=== PATIENT | female | born 1950 | race Caucasian/White ===

== ENCOUNTER 2017-10-11 16:34 | Emergency (ER) | payer MEDICARE ==
[~2017-10-11] VITALS: Ht 154.9 cm; Wt 72.6 kg
--- NOTE | 2017-10-11 16:59 | EKG ---
[address] [address] Test Date: 2017-10-11 Test Time: 16:39:50 Pat Name: GHISLAINE CALABRESE Department: Room: Gender: F Corn Detasseler: BARB : 1950 Requested By: CINTHYA LAKE Order Number: [id number] Reading MD: Measurements Intervals Minetto Rate: 64 P: 35 RI: 172 QRS: -23 QRSD: 86 T: 33 QT: 394 QTc: 406 Interpretive Statements SINUS RHYTHM LEFTWARD AXIS QRS(T) CONTOUR ABNORMALITY CONSIDER ANTEROLATERAL MYOCARDIAL DAMAGE POSSIBLY ABNORMAL ECG RI6.01 No previous ECG available for comparison
[2017-10-11] MEDS ORDERED: ASPIRIN 81 MG TAB.CHEW PO ONE (17:00)
--- NOTE | 2017-10-11 17:05 | PHYS DOC ---
Past History Past Medical History: Diabetes, GERD, Other Past Surgical History: Appendectomy, Cervical Fusion, Cholecystectomy, Hysterectomy Alcohol Use: None Drug Use: None Adult General Chief Complaint Chief Complaint: CHEST PAIN HPI HPI 66-year-old female presents with left-sided chest pain. The area of pain is localized just under the left breast. It has been hurting her all day. She is unsure she woke up with it or if it started after she woke up. It hurts worse with deep breathing. She denies shortness of breath or diaphoresis. He has a history of pleurisy. She states that yesterday she had pleuritic type pain in that general area that was sharp. Today the pressure is a heaviness. He denies recent injury. She denies fever or chills. She denies rash. Review of Systems Review of Systems Constitutional: Denies fever or chills [] Eyes: Denies change in visual acuity, redness, or eye pain [] HENT: Denies nasal congestion or sore throat [] Respiratory: Denies cough or shortness of breath [] Cardiovascular: No additional information not addressed in HPI [] GI: Denies abdominal pain, nausea, vomiting, bloody stools or diarrhea [] : Denies dysuria or hematuria [] Musculoskeletal: Denies back pain or joint pain [] Integument: Denies rash or skin lesions [] Neurologic: Denies headache, focal weakness or sensory changes [] Endocrine: Denies polyuria or polydipsia [] All other systems were reviewed and found to be within normal limits, except as documented in this note. Current Medications Current Medications Current Medications Medications (Trade) Dose Ordered Sig/Rufino Start Time Stop Time Status Last Admin Dose Admin Aspirin (Children'S Aspirin) 243 mg 1X ONCE 10/11/17 17:00 10/11/17 17:01 Allergies Allergies Allergies Coded Allergies Type Severity Reaction Last Updated Verified Penicillins Allergy Intermediate 10/11/17 Yes carbamazepine Allergy Intermediate 10/11/17 Yes epinephrine Allergy Intermediate 10/11/17 Yes ibuprofen Allergy Intermediate 10/11/17 Yes latex Allergy Intermediate 10/11/17 Yes naproxen Allergy Intermediate 10/11/17 Yes tramadol Allergy Intermediate 10/11/17 Yes Physical Exam Physical Exam Constitutional: Well developed, well nourished, no acute distress, non-toxic appearance. [] HENT: Normocephalic, atraumatic, bilateral external ears normal, oropharynx moist, no oral exudates, nose normal. [] Eyes: PERRLA, EOMI, conjunctiva normal, no discharge. [] Neck: Normal range of motion, no tenderness, supple, no stridor. [] Cardiovascular:Heart rate regular rhythm, no murmur. Tenderness to palpation of the chest just under the left lateral breast. No rash. [] Lungs & Thorax: Bilateral breath sounds clear to auscultation [] Abdomen: Bowel sounds normal, soft, no tenderness, no masses, no pulsatile masses. [] Skin: Warm, dry, no erythema, no rash. [] Back: No tenderness, no CVA tenderness. [] Extremities: No tenderness, no cyanosis, no clubbing, ROM intact, no edema. [] Neurologic: Alert and oriented X 3, normal motor function, normal sensory function, no focal deficits noted. [] Psychologic: Affect normal, judgement normal, mood normal. [] EKG EKG Normal sinus rhythm, rate 64, normal axis, no ST elevations or depressions.[] Radiology/Procedures Radiology/Procedures AP portable chest 10/11/2017. Reason for exam: Left-sided chest pain for one day. Comparison is made with a study of 10/29/2015. No infiltrate or effusion is seen. Heart size and pulmonary vascularity appear normal. IMPRESSION: No acute disease. Electronically signed by: Lan Rodriguez Jr., MD (10/11/2017 5:17 PM) [facility] [] Course & Med Decision Making Course & Med Decision Making Pertinent Labs and Imaging studies reviewed. (See chart for details) Patient's chest x-ray is unremarkable. Her labs are unremarkable. Her troponin is negative. I believe the patient's pain is musculoskeletal. I don't see any evidence of cardiac source. The patient is postoperative hernia surgery on Thursday so she is limited in the medications she can take for pain. I will leave it up to her whether or not she wants to take anti-inflammatories and potentially delay her surgery or "tough it out". I have also advised the patient to look for possible rash as sometimes shingles presents with the pain she is describing. He stated verbal understanding. She will only take Tylenol at home so that she can still have surgery. [] Dragon Disclaimer Dragon Disclaimer This electronic medical record was generated, in whole or in part, using a voice recognition dictation system. CINTHYA LAKE DO October 11, 2017 17:05
[2017-10-11 17:14] LABS: BASO % 1 % (0-3); EOS # 0.1 x10^3/uL (0.0-0.7); EOS % 1 % (0-3); HEMATOCRIT 40.1 % (36.0-47.0); HEMOGLOBIN 13.4 g/dL (12.0-15.5); LYMPH # 2.9 x10^3/uL (1.0-4.8); LYMPH % 39 % (24-48); MEAN CORPUSCULAR HEMOGLOBIN 31 pg (25-35); MEAN CORPUSCULAR HGB CONC 34 g/dL (31-37); MEAN CORPUSCULAR VOLUME 91 fL (79-100); MONO # 0.6 x10^3/uL (0.0-1.1); MONO % 8 % (0-9); NEUT # 3.8 x10^3uL (1.8-7.7); NEUT % 51 % (31-73); PLATELET COUNT 124 x10^3/uL (140-400); RED CELL DISTRIBUTION WIDTH 13.6 % (11.5-14.5); WHITE BLOOD COUNT 7.5 x10^3/uL (4.0-11.0)
--- NOTE | 2017-10-11 17:20 | RAD ---
AP portable chest 10/11/2017. Reason for exam: Left-sided chest pain for one day. Comparison is made with a study of 10/29/2015. No infiltrate or effusion is seen. Heart size and pulmonary vascularity appear normal. IMPRESSION: No acute disease. Electronically signed by: Lan Rodriguez Jr., MD (10/11/2017 5:17 PM) [facility]
[2017-10-11 17:21] LABS: CALCIUM 10.1 mg/dL (8.5-10.1); CREATININE 1.1 mg/dL (0.6-1.0); POTASSIUM 4.6 mmol/L (3.5-5.1)
[2017-10-11 17:53] LABS: BACTERIA,URINE 0 /HPF (0-FEW); BILIRUBIN,URINE NEG (NEG); CLARITY,URINE CLEAR; COLOR,URINE STRAW; GLUCOSE,URINE NEG (NEG); HYALINE CASTS, URINE OCC /HPF; NITRITE,URINE NEG (NEG); RBC,URINE RARE /HPF (0-2); SQUAMOUS EPITHELIAL CELL,UR OCC /LPF; UROBILINOGEN,URINE 0.2 mg/dL (0.2 mg/dL)
[2017-10-11 18:11] VITALS: BP 128/65
== END 2017-10-11 18:10 | disposition home or self-care (01) ==
LOC: ER 16:34
DX: R07.89 Other chest pain (principal); E11.9 Type 2 diabetes mellitus without complications; K21.9 Gastro-esophageal reflux disease without esophagitis; Z88.0 Allergy status to penicillin; Z88.6 Allergy status to analgesic agent; Z91.040 Latex allergy status; Z88.8 Allergy status to other drugs, medicaments and biological substances
CPT/HCPCS: 36415; 71045; 80048; 81001; 84484; 85025; 87086; 93005; 99285-25

== ENCOUNTER 2018-07-25 10:32 | Emergency (ER) | payer MEDICARE ==
[~2018-07-25] VITALS: Ht 154.9 cm; Wt 72.6 kg
--- NOTE | 2018-07-25 11:42 | PHYS DOC ---
Past History Past Medical History: Asthma, Diabetes, GERD, Hypertension, Migraines, TIA, Other Past Surgical History: Appendectomy, Cervical Fusion, Cholecystectomy, Hysterectomy, Other Alcohol Use: None Drug Use: None Adult General Chief Complaint Chief Complaint: ANKLE PROBLEM HPI HPI Female presents with left ankle pain. The patient was walking out of her house with her cataracts sunglasses on and did not see that the ice had refrozen. She fell and had immediate severe pain in the left ankle. She was not able to stand up. She has significant swelling and continued pain. She still cannot bear weight on this joint. Is any other injuries or complaints. She did not hit her head. She denies fever or chills. Review of Systems Review of Systems Constitutional: Denies fever or chills [] Eyes: Denies change in visual acuity, redness, or eye pain [] HENT: Denies nasal congestion or sore throat [] Respiratory: Denies cough or shortness of breath [] Cardiovascular: No additional information not addressed in HPI [] GI: Denies abdominal pain, nausea, vomiting, bloody stools or diarrhea [] : Denies dysuria or hematuria [] Musculoskeletal: Left ankle pain[] Integument: Denies rash or skin lesions [] Neurologic: Denies headache, focal weakness or sensory changes [] Endocrine: Denies polyuria or polydipsia [] All other systems were reviewed and found to be within normal limits, except as documented in this note. Allergies Allergies Allergies Coded Allergies Type Severity Reaction Last Updated Verified Penicillins Allergy Intermediate 10/11/17 Yes carbamazepine Allergy Intermediate 10/11/17 Yes epinephrine Allergy Intermediate 10/11/17 Yes ibuprofen Allergy Intermediate 10/11/17 Yes latex Allergy Intermediate 10/11/17 Yes naproxen Allergy Intermediate 10/11/17 Yes tramadol Allergy Intermediate 10/11/17 Yes Physical Exam Physical Exam Constitutional: Well developed, well nourished, no acute distress, non-toxic appearance. [] HENT: Normocephalic, atraumatic, bilateral external ears normal, oropharynx moist, no oral exudates, nose normal. [] Eyes: PERRLA, EOMI, conjunctiva normal, no discharge. [] Neck: Normal range of motion, no tenderness, supple, no stridor. [] Cardiovascular:Heart rate regular rhythm, no murmur [] Lungs & Thorax: Bilateral breath sounds clear to auscultation [] Abdomen: Bowel sounds normal, soft, no tenderness, no masses, no pulsatile masses. [] Skin: Warm, dry, no erythema, no rash. [] Back: No tenderness, no CVA tenderness. [] Extremities: Left ankle tenderness on both malleoli, significant swelling and ecchymosis. Nonweightbearing.[] Neurologic: Alert and oriented X 3, normal motor function, normal sensory function, no focal deficits noted. [] Psychologic: Affect normal, judgement normal, mood normal. [] Current Patient Data Vital Signs Vital Signs Date Time Temp Pulse Resp B/P (MAP) Pulse Ox O2 Delivery O2 Flow Rate FiO2 07/25/18 10:32 97.9 74 16 100 Room Air EKG EKG [] Radiology/Procedures Radiology/Procedures [] Impressions: Interpretation: Patient has a trimalleolar fracture of the left ankle. ANKLE LEFT 3V History: FALL ON ICE THIS MORNING, SWELLING, PAIN. Comparison: None are available Nondisplaced transverse fracture of the medial malleolus. There is a slightly oblique fracture of the distal fibula with minimal displacement. There is also a small nondisplaced fracture at the posterior malleolus of the distal tibia. Evidence of joint effusion. No evidence of tibiotalar dislocation. Mild soft tissue swelling around the ankle. Vascular calcifications are identified. Calcaneal enthesophytes are seen. IMPRESSION: Trimalleolar fracture, minimal displacement. No dislocation. Electronically signed by: Jerrica Mdaden MD (07/25/2018 11:44 AM) [facility] DICTATED AND SIGNED BY: JERRICA MADDEN MD DATE: 07/25/18 1141 CC: CINTHYA LAKE DO; KERLINE HALL MD Course & Med Decision Making Course & Med Decision Making Pertinent Labs and Imaging studies reviewed. (See chart for details) She has a fracture of her tibia and fibula. We will place her on a splint and discuss the patient with orthopedics. Discussed the patient with Dr. Teague, orthopedics and he believes the patient can be safely discharged home in a splint and he will see her in the office tomorrow. I'll discharge the patient in a splint, on crutches. I will also give her [place] 5/325 for pain. [] Dragon Disclaimer Dragon Disclaimer This electronic medical record was generated, in whole or in part, using a voice recognition dictation system. Departure Departure: Impression: Primary Impression: Closed left ankle fracture Disposition: 01 HOME, SELF-CARE Condition: STABLE Referrals: KERLINE HALL MD (PCP) Patient Instructions: Ankle Fracture, [id number] Additional Instructions: Please call Dr. Teague's office tomorrow morning for an appointment. Number is . He is expecting to see her tomorrow. He will likely need surgery later in the week. Scripts Hydrocodone Bit/Acetaminophen (NORCO 5-325 TABLET) 1 Each Tablet 1-2 TAB PO PRN Q6HRS PRN for PAIN, #20 TAB 0 Refills Prov: CINTHYA LAKE DO 07/25/18 Problem Qualifiers Primary Impression: Closed left ankle fracture Encounter type: initial encounter Qualified Codes: S82.892A - Other fracture of left lower leg, initial encounter for closed fracture CINTHYA LAKE DO Jul 25, 2018 11:42
--- NOTE | 2018-07-25 11:47 | RAD ---
ANKLE LEFT 3V History: FALL ON ICE THIS MORNING, SWELLING, PAIN. Comparison: None are available Nondisplaced transverse fracture of the medial malleolus. There is a slightly oblique fracture of the distal fibula with minimal displacement. There is also a small nondisplaced fracture at the posterior malleolus of the distal tibia. Evidence of joint effusion. No evidence of tibiotalar dislocation. Mild soft tissue swelling around the ankle. Vascular calcifications are identified. Calcaneal enthesophytes are seen. IMPRESSION: Trimalleolar fracture, minimal displacement. No dislocation. Electronically signed by: Errol Madden MD (07/25/2018 11:44 AM) [facility]
[2018-07-25] MEDS ORDERED: HYDROcodone/APAP 5/325MG 1 TAB TABLET PO ONE ×2 (12:00→13:45)
[2018-07-25] MEDS ORDERED: NAPROXEN 500 MG TABLET PO ONE (12:15)
[2018-07-25] MEDS ORDERED: KETOROLAC 30 MG/ML VIAL. IV ONE (12:15)
[2018-07-25] MEDS ORDERED: HYDR-3165 PO (13:19)
--- NOTE | 2018-07-25 13:20 | RAD ---
HIP LEFT 2V WITH PELVIS, KNEE LEFT 3V History: left hip pain and pelvis pain post fall. Comparison: None are available 3 view portable left knee No evidence of acute fracture. No bone destruction is identified. Mild vascular calcification. IMPRESSION: No acute fracture or dislocation. 3 view left hip No evidence of acute fracture. No aggressive bone destruction. No evidence of dislocation. AP image of the skeletal pelvis demonstrates no dislocation at the right hip. IMPRESSION: No acute fracture or dislocation. Electronically signed by: Errol Madden MD (07/25/2018 1:17 PM) [facility]
[2018-07-25 13:35] VITALS: BP 128/68
== END 2018-07-25 14:20 | disposition home or self-care (01) ==
LOC: ER 10:32
DX: S82.852A Displaced trimalleolar fracture of left lower leg, initial encounter for closed fracture (principal); M25.552 Pain in left hip; R10.2 Pelvic and perineal pain; J45.909 Unspecified asthma, uncomplicated; E11.9 Type 2 diabetes mellitus without complications; K21.9 Gastro-esophageal reflux disease without esophagitis; I10 Essential (primary) hypertension; G43.909 Migraine, unspecified, not intractable, without status migrainosus; Z86.73 Personal history of transient ischemic attack (TIA), and cerebral infarction without residual deficits; Z90.89 Acquired absence of other organs; Z90.49 Acquired absence of other specified parts of digestive tract; Z90.710 Acquired absence of both cervix and uterus; Z88.0 Allergy status to penicillin; Z88.8 Allergy status to other drugs, medicaments and biological substances; Z88.6 Allergy status to analgesic agent; Z91.040 Latex allergy status; W00.0XXA Fall on same level due to ice and snow, initial encounter; Y93.01 Activity, walking, marching and hiking; Y92.89 Other specified places as the place of occurrence of the external cause; Y99.8 Other external cause status
CPT/HCPCS: 29515; 73502; 73562; 73610; 99284

== ENCOUNTER → 2018-11-26 | Outpatient (CLI) | payer MEDICARE ==
[~2018-11-26] MED LIST: 0.9 % SODIUM CHLORIDE 10 ML VIAL ONE; BUPIVACAINE MPF 0.25% 10 ML VIAL. ONE; HYDR-3165 PO; IOHEXOL 300 MG/ML 50 ML VIAL. ONE; LIDOCAINE 1% PF 30 ML VIAL. ONE; methylPREDNISolone ACETATE 80 MG/ML VIAL. ONE
== END ==
LOC: SURG 11:47
PROVIDERS: ATTEND Anesthesiology Pain Medicine
DX: M54.16 Radiculopathy, lumbar region (principal); J45.909 Unspecified asthma, uncomplicated; I10 Essential (primary) hypertension; K21.9 Gastro-esophageal reflux disease without esophagitis; Z85.828 Personal history of other malignant neoplasm of skin; Z79.82 Long term (current) use of aspirin; Z98.890 Other specified postprocedural states; Z79.899 Other long term (current) drug therapy
CPT/HCPCS: 62323; 82947; J1040; J2001; J3490; Q9967

== ENCOUNTER 2019-01-29 09:49 | Observation (INO) | payer MEDICARE ==
[~2019-01-29] VITALS: Ht 154.9 cm; Wt 74.0 kg
[~2019-01-29 09:49] MED LIST changes: -0.9 % SODIUM CHLORIDE 10 ML VIAL ONE; -BUPIVACAINE MPF 0.25% 10 ML VIAL. ONE; -IOHEXOL 300 MG/ML 50 ML VIAL. ONE; -LIDOCAINE 1% PF 30 ML VIAL. ONE; -methylPREDNISolone ACETATE 80 MG/ML VIAL. ONE
--- NOTE | 2019-01-29 10:23 | PHYS DOC ---
Past History Past Medical History: Asthma, Diabetes, GERD, Hypertension, Migraines, TIA, Other Past Surgical History: Appendectomy, Cervical Fusion, Cholecystectomy, Hysterectomy, Other Alcohol Use: None Drug Use: None Adult General Chief Complaint Chief Complaint: MECHANICAL FALL HPI HPI 68-year-old female presents after fall. The patient was try to get things out of back of her car when she fell onto her left side. Patient is having some medial left hip discomfort. She also hit her head and a fair amount of bleeding from an abrasion on her left forehead. She has significant ecchymosis of the left forehead and above the left eye. She denies change in vision. She denies unconsciousness. She is not dizzy. She believes she just lost her balance and fell. She is supposed to use a cane most of the time. She has been feeling dizzy intermittently takes meclizine for this. She does not remember feeling dizzy right before her fall. Patient also has some left ankle discomfort. She fell 6 months ago and had left ankle surgery. She is concerned there might be disrupted. She denies fever or chills. Review of Systems Review of Systems Constitutional: Denies fever or chills [] Eyes: Denies change in visual acuity, redness, or eye pain [] HENT: Head trauma. Denies nasal congestion or sore throat [] Respiratory: Denies cough or shortness of breath [] Cardiovascular: No additional information not addressed in HPI [] GI: Denies abdominal pain, nausea, vomiting, bloody stools or diarrhea [] : Denies dysuria or hematuria [] Musculoskeletal: Left hip pain, left ankle pain[] Integument: Denies rash or skin lesions [] Neurologic: Denies headache, focal weakness or sensory changes [] Endocrine: Denies polyuria or polydipsia [] All other systems were reviewed and found to be within normal limits, except as documented in this note. Allergies Allergies Allergies Coded Allergies Type Severity Reaction Last Updated Verified Penicillins Allergy Intermediate 10/11/17 Yes carbamazepine Allergy Intermediate 10/11/17 Yes epinephrine Allergy Intermediate 10/11/17 Yes ibuprofen Allergy Intermediate 10/11/17 Yes latex Allergy Intermediate 10/11/17 Yes naproxen Allergy Intermediate 10/11/17 Yes tramadol Allergy Intermediate 10/11/17 Yes Physical Exam Physical Exam Constitutional: Well developed, well nourished, no acute distress, non-toxic appearance. [] HENT: Normocephalic, bilateral external ears normal, oropharynx moist, no oral exudates, nose normal. Bruising of left forehead and upper eyelid. [] Eyes: PERRLA, EOMI, conjunctiva normal, no discharge. [] Neck: Normal range of motion, no tenderness, supple, no stridor. [] Cardiovascular:Heart rate regular rhythm, no murmur [] Lungs & Thorax: Bilateral breath sounds clear to auscultation [] Abdomen: Bowel sounds normal, soft, no tenderness, no masses, no pulsatile masses. [] Skin: Warm, dry, no erythema, no rash. [] Back: No tenderness, no CVA tenderness. [] Extremities: No tenderness, no cyanosis, no clubbing, ROM intact, no edema. [] Neurologic: Alert and oriented X 3, normal motor function, normal sensory function, no focal deficits noted. [] Psychologic: Affect normal, judgement normal, mood normal. [] EKG EKG [] Radiology/Procedures Radiology/Procedures [] Impressions: CT HEAD WO CONTRAST Indication: Fall. Headaches. Dizziness. Exposure: One or more of the following individualized dose reduction techniques were utilized for this examination: 1. Automated exposure control 2. Adjustment of the mA and/or kV according to patient size 3. Use of iterative reconstruction technique. Technique: Standard imaging without intravenous contrast. Comparison: None FINDINGS: No evidence of acute intracranial hemorrhage, mass effect, midline shift or abnormal extra-axial fluid collection. Orozco-white matter distinction is intact. Mild soft tissue density and swelling in the left periorbital and left frontal region. Small fluid level within the left maxillary sinus. No definite fracture is identified. Orbits appear grossly intact. IMPRESSION: 1. No evidence of acute intracranial hemorrhage. 2. Left periorbital and left frontal scalp swelling or hematoma. 3. Small fluid level within the partially visualized left maxillary sinus. This could be inflammatory or posttraumatic. No displaced fracture is seen at the partially visualized facial bones but if facial fracture is of concern, recommend dedicated CT scan. Electronically signed by: Errol Madden MD (01/29/2019 10:39 AM) [facility] DICTATED AND SIGNED BY: ERROL MADDEN MD DATE: 01/29/19 1039 CC: CINTHYA LAKE DO; KERLINE HALL MD ~ Examination: ANKLE LEFT 3V History: Fall, pain, recent surgery Comparison/Correlation: 07/25/2018 left ankle 3 view x-ray exam Findings: A total of 3 views of the left ankle were obtained. Right is noted involving the left fibula extending to the distal lateral malleolus. Mild deformity with findings of previous history of fracture noted. There are 2 linear rods involving the distal tibia extending to the distal medial malleolus. Small calcaneal spur is present. Vascular calcifications are present. No acute fracture or bony destruction. Impression: Postoperative findings. No acute process. Electronically signed by: Luís Valle MD (01/29/2019 11:02 AM) [facility] DICTATED AND SIGNED BY: LUÍS VALLE MD DATE: 01/29/19 1102 CC: CINTHYA LAKE DO; KERLINE HALL MD ~ Course & Med Decision Making Course & Med Decision Making Pertinent Labs and Imaging studies reviewed. (See chart for details) The patient's head CT is negative for intracranial bleed. It does show superficial hematoma. See official report for more details. I am not suspicious for maxillary fracture. Her chest x-rays negative for acute findings. The patient's labs is unremarkable. Her urinalysis is unremarkable. The patient is having significant pain requiring IV pain medication for her left hip. I believe that would also be blue to observe her given her head trauma and aspirin use. I spoke to the hospitalist, Dr. Zhou and he has accepted the patient for observation admission. [] Dragon Disclaimer Dragon Disclaimer This electronic medical record was generated, in whole or in part, using a voice recognition dictation system. Departure Departure: Impression: Primary Impression: Fall from standing Additional Impressions: Closed head injury Contusion of face Left hip pain Disposition: ADMITTED INPATIENT Admitting Physician: Florentino Zhou Condition: STABLE Referrals: KERLINE HALL MD (PCP) Problem Qualifiers CINTHYA LAKE DO Jan 29, 2019 10:23
--- NOTE | 2019-01-29 10:42 | RAD ---
CT HEAD WO CONTRAST Indication: Fall. Headaches. Dizziness. Exposure: One or more of the following individualized dose reduction techniques were utilized for this examination: 1. Automated exposure control 2. Adjustment of the mA and/or kV according to patient size 3. Use of iterative reconstruction technique. Technique: Standard imaging without intravenous contrast. Comparison: None FINDINGS: No evidence of acute intracranial hemorrhage, mass effect, midline shift or abnormal extra-axial fluid collection. Orozco-white matter distinction is intact. Mild soft tissue density and swelling in the left periorbital and left frontal region. Small fluid level within the left maxillary sinus. No definite fracture is identified. Orbits appear grossly intact. IMPRESSION: 1. No evidence of acute intracranial hemorrhage. 2. Left periorbital and left frontal scalp swelling or hematoma. 3. Small fluid level within the partially visualized left maxillary sinus. This could be inflammatory or posttraumatic. No displaced fracture is seen at the partially visualized facial bones but if facial fracture is of concern, recommend dedicated CT scan. Electronically signed by: Errol Madden MD (01/29/2019 10:39 AM) [facility]
--- NOTE | 2019-01-29 11:05 | RAD ---
Examination: ANKLE LEFT 3V History: Fall, pain, recent surgery Comparison/Correlation: 07/25/2018 left ankle 3 view x-ray exam Findings: A total of 3 views of the left ankle were obtained. Right is noted involving the left fibula extending to the distal lateral malleolus. Mild deformity with findings of previous history of fracture noted. There are 2 linear rods involving the distal tibia extending to the distal medial malleolus. Small calcaneal spur is present. Vascular calcifications are present. No acute fracture or bony destruction. Impression: Postoperative findings. No acute process. Electronically signed by: Luís Coronado MD (01/29/2019 11:02 AM) [facility]
[2019-01-29 12:10] LABS: BASO % 1 % (0-3); EOS # 0.1 x10^3/uL (0.0-0.7); EOS % 1 % (0-3); HEMOGLOBIN 12.9 g/dL (12.0-15.5); LYMPH # 1.3 x10^3/uL (1.0-4.8); LYMPH % 23 % (24-48); MEAN CORPUSCULAR HEMOGLOBIN 31 pg (25-35); MEAN CORPUSCULAR HGB CONC 33 g/dL (31-37); MEAN CORPUSCULAR VOLUME 94 fL (79-100); MONO # 0.5 x10^3/uL (0.0-1.1); MONO % 8 % (0-9); NEUT # 3.8 x10^3uL (1.8-7.7); NEUT % 67 % (31-73); PLATELET COUNT 128 x10^3/uL (140-400); RED BLOOD COUNT 4.16 x10^6/uL (3.50-5.40); RED CELL DISTRIBUTION WIDTH 14.3 % (11.5-14.5); WHITE BLOOD COUNT 5.7 x10^3/uL (4.0-11.0)
[2019-01-29 12:22] LABS: ALBUMIN 3.4 g/dL (3.4-5.0); ALBUMIN/GLOBULIN RATIO 0.9 (1.0-1.7); CALCIUM 10.2 mg/dL (8.5-10.1); CREATININE 0.8 mg/dL (0.6-1.0); GFR 71.8; POTASSIUM 4.6 mmol/L (3.5-5.1); TOTAL BILIRUBIN 0.4 mg/dL (0.2-1.0); TOTAL PROTEIN 7.1 g/dL (6.4-8.2)
[2019-01-29 13:25] LABS: BACTERIA,URINE 0 /HPF (0-FEW); BILIRUBIN,URINE NEG (NEG); CLARITY,URINE CLEAR; COLOR,URINE YELLOW; GLUCOSE,URINE NEG (NEG); NITRITE,URINE NEG (NEG); RBC,URINE 0 /HPF (0-2); SQUAMOUS EPITHELIAL CELL,UR OCC /LPF; UROBILINOGEN,URINE 0.2 mg/dL (0.2 mg/dL); WBC,URINE 0 /HPF (0-4)
[2019-01-29] MEDS: ONDANSETRON PF 4 MG/2 ML VIAL. IV PRN ×2 (14:47→20:41)
--- NOTE | 2019-01-29 14:50 | RAD ---
HIP LEFT 2V WITH PELVIS History: Pain after a fall.. No evidence of acute fracture. No aggressive bone destruction. Joint spaces appear intact. Moderate stool within the visualized colon and rectum. Mild small bowel gaseous distention suggesting an ileus. IMPRESSION: 1. No evidence of an acute fracture. If there is persistent clinical concern for occult fracture, consider MRI. 2. Moderate retained stool or constipation. Electronically signed by: Errol Madden MD (01/29/2019 2:47 PM) [facility]
[2019-01-29 18:50] VITALS: BP 145/79
[2019-01-29 20:10] VITALS: BP 139/80
[2019-01-29] MEDS ORDERED: GABA600T7 PO (20:19)
[2019-01-29] MEDS ORDERED: LOSA50TA86 PO (20:20)
[2019-01-29] MEDS ORDERED: CYCL1DRO EACHEYE (20:21)
--- NOTE | 2019-01-29 20:31 | HP ---
ADMIT DATE: 01/29/2019 ATTENDING PHYSICIAN: Dr. Villafana. CHIEF COMPLAINT: Fall and head injury. HISTORY OF PRESENT ILLNESS: The patient, age 68, has frequent falls. She was trying to get things on the back of a car. She fell on her left side. She had struck her head and there is an abrasion and contusion to the left orbit. She has a significant black eye. She denied any changes in vision. The orbit appears intact. She believes she lost her balance and fell. She has had recent fall 6 months ago sustaining an injury and a fracture of the left ankle and leg. She is admitted then for observation and pain control. She is nonambulatory. She has had a hip surgery in the past and she can walk and get around. PAST MEDICAL HISTORY: Significant for asthma, type 2 diabetes, gastroesophageal reflux disease, hypertension, migraine, remote history of TIAs and complex regional pain syndrome, which used to be called reflex sympathetic dystrophy. PAST SURGICAL HISTORY: Includes appendectomy, cervical fusion, cholecystectomy and hysterectomy. SOCIAL HISTORY: She is a nonsmoker, nondrinker. CURRENT MEDICINES: Reviewed. Her current medicines just include hydrocodone and Zofran. ALLERGIES: She has multiple allergies including PENICILLIN, CARBAMAZEPINE, EPINEPHRINE, IBUPROFEN, LATEX, NAPROSYN and TRAMADOL. FAMILY HISTORY: Noncontributory. REVIEW OF SYSTEMS: Significant for chronic pain involving her left ankle, leg and back, frequent falls, dysphagia. She has had a contusion. There is no history of nausea, vomiting, diarrhea. All other systems reviewed and determined to be negative. PHYSICAL EXAMINATION: GENERAL: When I saw her, this is a pleasant middle-aged female. INITIAL VITAL SIGNS: Showed a blood pressure 145/79, pulse of 76 and regular. She was afebrile. HEENT: There is left orbital ecchymoses with significant swelling. The eyelid is inflamed. The orbit appears intact. There is no diplopia. The sclerae were nonicteric. The oropharynx is clear. NECK: Supple, no bruits. LUNGS: Otherwise clear. CARDIOVASCULAR: Showed regular heart tones. No gallops or murmurs. Peripheral pulses are palpable and full. ABDOMEN: Soft, scaphoid, nontender, no organomegaly. Bowel sounds are hypoactive. EXTREMITIES: Showed mild degenerative changes of her ankles and knees. NEUROLOGIC: Focally intact. No deficits. PERTINENT LABORATORY STUDIES: X-rays as noted. There are no obvious fractures identified. The obligatory CT of the head showed no evidence of acute intracranial hemorrhage. She has a left periorbital and left frontal scalp swelling and hematoma, small fluid level within the maxillary sinus. X-rays of the left hip shows no evidence of acute fracture or dislocation. Her hemoglobin was maintained at 12.9 g/dL with white count of 5700. Chemistry panel showed a serum creatinine of 0.8 mg percent. Electrolytes within normal range. Nonfasting blood sugar 155. ASSESSMENT: 1. This 68-year-old female fell. No loss of consciousness. She has a significant hematoma of the left orbit. 2. Complex regional pain syndrome following trauma of her left ankle and leg. 3. Chronic back pain. 4. Essential hypertension. PLAN: 1. Admit to the inpatient unit. 2. Pain management, p.r.n. narcotics have been ordered. 3. Bed rest. 4. Diet as tolerated. 5. Nausea control. 6. We will ask physical therapy to see next week when they are available. DARREN VILLAFANA MD DR: PADDY/neptali JOB#: [id number] / [id number]
[2019-01-29] MEDS: LOSARTAN 50 MG TABLET. PO SCH (20:41)
[2019-01-29] MEDS: GABAPENTIN 300 MG CAPSULE. PO SCH (20:42)
[2019-01-29] MEDS: HYDROcodone/APAP 10/325 1 TAB TABLET PO PRN (22:34)
[2019-01-29 22:46] VITALS: BP 143/78
[2019-01-30] MEDS: HYDROcodone/APAP 10/325 1 TAB TABLET PO PRN ×3 (05:18→17:52)
[2019-01-30 05:38] VITALS: BP 128/77
[2019-01-30] MEDS: GABAPENTIN 300 MG CAPSULE. PO SCH ×3 (09:09→20:39)
[2019-01-30 10:55] VITALS: BP 100/62
[2019-01-30] MEDS: LINAGLIPTIN 5 MG TABLET PO SCH (12:43)
[2019-01-30] MEDS: metFORMIN XR 500 MG TAB.ER.24H PO SCH (12:43)
[2019-01-30 15:09] VITALS: BP 139/81
[2019-01-30] MEDS ORDERED: GLIP5TAB10 PO (17:08)
[2019-01-30] MEDS: glipiZIDE 5 MG TABLET PO SCH (17:40)
[2019-01-30 20:07] VITALS: BP 134/67
[2019-01-30] MEDS: LOSARTAN 50 MG TABLET. PO SCH (20:39)
[2019-01-30] MEDS: cycloSPORINE 0.05% OPTH 1 DROP DROPERETTE OU SCH ×2 (20:39)
--- NOTE | 2019-01-30 21:31 | PN ---
DATE: 01/30/2019 ATTENDING PHYSICIAN: Dr. Villafana. CHIEF COMPLAINT: Fall and inability to ambulate independently. SUBJECTIVE: She is sore. She is able to transfer with minimal assistance. She denied any dizziness, nausea. The pain of the trauma is slightly improved. She is eating. She has no new complaints. PHYSICAL EXAMINATION: VITAL SIGNS: Her blood pressure today is 128/77, pulse of 65 and regular, temperature 97.5 degrees Fahrenheit, oxygen saturation 95% on room air. HEENT: There is significant trauma of the left side of her face with periorbital ecchymoses and bruising extending down the entire right side of her face. The orbit is intact. She has no diplopia or orbital issues. NECK: Supple. LUNGS: Clear. CARDIOVASCULAR: Showed regular heart tones. No gallops. Peripheral pulses are palpable and full. ABDOMEN: Soft, scaphoid, nontender, no organomegaly. Bowel sounds are hypoactive. LABORATORY DATA: Nonfasting blood sugar today is 133. She is still hurting in chronic back and leg. These are again chronic issues. ASSESSMENT: 1. A 68-year-old female with frequent falls. No loss of consciousness. Significant hematoma, left orbit. 2. Complex regional pain syndrome involving her left ankle, leg, and chronic low back pain. 3. Chronic low back pain, aggravated by recent fall. 4. Essential hypertension. PLAN: 1. Pain and nausea control. 2. Diet as tolerated. 3. She will decide tomorrow whether she is able to be ambulatory and go home or whether she needs acute rehabilitation. DARREN VILLAFANA MD DR: PADDY/neptali JOB#: [id number] / [id number]
[2019-01-30 22:56] VITALS: BP 117/71
[2019-01-31] MEDS: HYDROcodone/APAP 10/325 1 TAB TABLET PO PRN ×2 (00:25→06:12)
[2019-01-31 06:06] VITALS: BP 134/75
[2019-01-31] MEDS: glipiZIDE 5 MG TABLET PO SCH (08:31)
[2019-01-31] MEDS: LINAGLIPTIN 5 MG TABLET PO SCH (08:31)
[2019-01-31] MEDS: metFORMIN XR 500 MG TAB.ER.24H PO SCH (08:31)
[2019-01-31] MEDS: GABAPENTIN 300 MG CAPSULE. PO SCH (08:31)
[2019-01-31] MEDS: cycloSPORINE 0.05% OPTH 1 DROP DROPERETTE OU SCH ×2 (08:32→08:33)
--- NOTE | 2019-01-31 08:58 | DS ---
DATE OF DISCHARGE: 01/31/2019 ATTENDING PHYSICIAN: Dr. Villafana. FINAL DISCHARGE DIAGNOSES: 1. Fall at home. No loss of consciousness. 2. Concussion head, improved. 3. Hip contusion, improved. 4. Marked contusion of face, mainly left side of face and left orbit. 5. Type 2 diabetes. 6. Chronic low back pain. 7. Complex regional pain syndrome involving her left lower extremity. 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 She tripped and lost her balance. She sustained injuries to her head, trauma to the face, and the left orbit and left hip pain. She was nonambulatory. She was admitted for intractable pain refractory to outpatient care. PHYSICAL EXAMINATION: Please see the dictated note. PERTINENT LABORATORY AND X-RAY IMAGING STUDIES: The left hip and pelvis showed no evidence of acute fracture. The obligatory CT of the head showed periorbital and left frontal scalp swelling, hematoma, no acute intracranial process, hemorrhage or strokes identified. The hemoglobin is maintained at 12.9 g/dL with white count of 5700. Chemistry panel nonfasting blood sugar improved and was down to 140 by the time of discharge. COURSE IN THE HOSPITAL: The patient was admitted for pain control, bed rest, ambulation with some assistance, a walker was obtained. She did fairly well. Diet was advanced. Pain was controlled with p.o. Lortab without any nausea. By the third hospital day, her swelling of her face had improved. She did not have any visual issues with diplopia. She was able to ambulate independently with the help of a walker. At this time, she is agreeable to go home. She already has physical therapy scheduled as outpatient. She will call them to restart that later this week. On the third hospital day, I wrote scripts for hydrocodone/Tylenol 10/325, 1 every 6 hours p.r.n. pain. Her other home meds are unchanged. She should continue her cyclosporine eye drops, Neurontin, glipizide, losartan, hydrocodone as needed for pain, and her Januvia dose is unchanged. The patient was then discharged from our hospital in stable condition with explicit instructions and followup care. Total discharge time spent 38 minutes. She will follow up with her orthopedist and her primary care physician as scheduled. DARREN VILLAFANA MD DR: PADDY/neptali JOB#: [id number] / [id number]
[2019-01-31] MEDS ORDERED: ORPH-16 PO (22:06)
== END 2019-01-31 09:27 | disposition home or self-care (01) ==
LOC: ER 09:49 → 1 SOUTH 15:00
PROVIDERS: ADMIT Hospitalist; ATTEND Hospitalist
DX: S05.12XA Contusion of eyeball and orbital tissues, left eye, initial encounter (principal); S00.212A Abrasion of left eyelid and periocular area, initial encounter; G90.522 Complex regional pain syndrome I of left lower limb; M54.9 Dorsalgia, unspecified; G89.29 Other chronic pain; E11.9 Type 2 diabetes mellitus without complications; I10 Essential (primary) hypertension; J45.909 Unspecified asthma, uncomplicated; K21.9 Gastro-esophageal reflux disease without esophagitis; G43.909 Migraine, unspecified, not intractable, without status migrainosus; Z90.49 Acquired absence of other specified parts of digestive tract; Z90.710 Acquired absence of both cervix and uterus; Z86.73 Personal history of transient ischemic attack (TIA), and cerebral infarction without residual deficits; W18.30XA Fall on same level, unspecified, initial encounter; Y93.89 Activity, other specified; Y92.89 Other specified places as the place of occurrence of the external cause; Y99.8 Other external cause status; R29.6 Repeated falls
CPT/HCPCS: 36415; 70450; 73502; 73610; 80053; 81001; 82947; 85025; 96374; 96375; 96376; 99284; G0378; G0379; J2405; J3010

== ENCOUNTER 2019-01-31 19:49 | Emergency (ER) | payer MEDICARE ==
[~2019-01-31] VITALS: Ht 154.9 cm; Wt 72.6 kg
[~2019-01-31 19:49] MED LIST changes: +CYCL1DRO EACHEYE; +GABA600T7 PO; +GLIP5TAB10 PO; +LOSA50TA86 PO
--- NOTE | 2019-01-31 20:42 | PHYS DOC ---
Past History Past Medical History: Asthma, Diabetes, Hypertension, TIA Past Surgical History: Other Alcohol Use: None Drug Use: None Adult General Chief Complaint Chief Complaint: LOWER EXT PAIN HPI HPI Patient is a 68-year-old female presents complaining of left hip and buttock pain. She had a mechanical trip and fall yesterday and was seen in the emergency department for it. Was not having much pain at that time. She is uncertain as to whether any x-ray imaging was performed yesterday. Today there is been increasing pain, and no significant improvement with her home pain medicines which include narcotic pain medicine given that she has a history of reflux and pathetic dystrophy. She is able to walk. No loss of bowel or bladder control. No new weakness, numbness, tingling, or other paresthesias. Pain is moderate in intensity.[] Review of Systems Review of Systems Constitutional: Denies fever or chills [] Eyes: Denies change in visual acuity, redness, or eye pain [] HENT: Denies nasal congestion or sore throat [] Respiratory: Denies cough or shortness of breath [] Cardiovascular: No chest pain or palpitations[] GI: Denies abdominal pain, nausea, vomiting, bloody stools or diarrhea [] : Denies dysuria or hematuria [] Musculoskeletal: Denies back pain, see history of present illness[] Integument: Denies rash or skin lesions [] Neurologic: Denies headache, focal weakness or sensory changes [] Endocrine: Denies polyuria or polydipsia [] All other systems were reviewed and found to be within normal limits, except as documented in this note. Allergies Allergies Allergies Coded Allergies Type Severity Reaction Last Updated Verified Penicillins Allergy Intermediate 10/11/17 Yes carbamazepine Allergy Intermediate 10/11/17 Yes epinephrine Allergy Intermediate 10/11/17 Yes ibuprofen Allergy Intermediate 10/11/17 Yes latex Allergy Intermediate 10/11/17 Yes naproxen Allergy Intermediate 10/11/17 Yes tramadol Allergy Intermediate 10/11/17 Yes Physical Exam Physical Exam Constitutional: Well developed, well nourished, no acute distress, non-toxic appearance. [] HENT: Normocephalic, atraumatic, bilateral external ears normal, oropharynx moist, no oral exudates, nose normal. [] Eyes: PERRLA, EOMI, conjunctiva normal, no discharge. [] Neck: Normal range of motion, no tenderness, supple, no stridor. [] Cardiovascular:Heart rate regular rhythm, no murmur [] Lungs & Thorax: Bilateral breath sounds clear to auscultation [] Abdomen: Bowel sounds normal, soft, no tenderness, no masses, no pulsatile masses. [] Skin: Warm, dry, no erythema, no rash. [] Back: No tenderness, no CVA tenderness. [] Extremities: Left hip and buttocks has diffuse tenderness to palpation. No rotational deformity. No increased pain with axial load. Patient is able to ambulate without dragging the leg. A joint below was evaluated and was normal. The other 3 extremities show: No tenderness, no cyanosis, no clubbing, ROM in tact, no edema. [] Neurologic: Alert and oriented X 3, normal motor function, normal sensory function, no focal deficits noted. [] Psychologic: Affect normal, judgement normal, mood normal. [] EKG EKG [] Radiology/Procedures Radiology/Procedures PROCEDURE: CT PELVIS WO CONTRAST INDICATION: Left hip pain with fall COMPARISON: Plain film from January 29, 2019 TECHNIQUE: Axial CT images obtained through the pelvis without contrast. One or more of the following individualized dose reduction techniques were utilized for this examination: 1. Automated exposure control; 2. Adjustment of the mA and/or kV according to patient size; 3. Use of iterative reconstruction technique. FINDINGS: Calcific atherosclerosis. Urinary bladder is partially distended. There is some stranding of the soft tissues including the gluteal region bilaterally as well as upper thighs. Degenerative changes of the lower lumbar spine. No CT evidence of proximal femur fracture. There is a subtle lucency at the anterior aspect of the left acetabulum. IMPRESSION: 1. No evidence of dislocation at the hips. 2. No CT evidence of proximal femur fracture. There is a subtle lucency seen at the anterior aspect of the left acetabulum. Could be a vascular channel within the region however a nondisplaced fracture can have this appearance and if further evaluation is desired MRI could further assess.[] Course & Med Decision Making Course & Med Decision Making Pertinent Labs and Imaging studies reviewed. (See chart for details) ED course: Patient arrived, was placed in bed, and tolerated exam well. She was transported to and from radiology with any complications. After return of the imaging findings, these were discussed with the patient voiced understanding. All questions were answered. She was discharged in improved condition. Medical decision making: Do not believe the CT findings represent a fracture due to no pain at onset. Believe this to be more of a contusion. There is no overt fracture. We'll have patient follow up with her primary care doctor for an outpatient MRI as indicated.[] Dragon Disclaimer Dragon Disclaimer This electronic medical record was generated, in whole or in part, using a voice recognition dictation system. Departure Departure: Impression: Primary Impression: Contusion of left hip Disposition: HOME, SELF-CARE Condition: IMPROVED Referrals: KERLINE HALL MD (PCP) Follow-up in 2 days Patient Instructions: Contusion Additional Instructions: Follow-up with your regular doctor in 2 days. Continue your pain medicine as prescribed. Apply warm compresses to the affected area for 15 minutes at a time, at least 4 times a day. Return to the ER if worsening pain or any other concerns. Scripts Orphenadrine Citrate (ORPHENADRINE CITRATE) 100 Mg Tablet.er 100 MG PO BID for BACK PAIN, #20 TAB.SR Prov: BARBARA WHELAN DO 01/31/19 Problem Qualifiers Primary Impression: Contusion of left hip Encounter type: initial encounter Qualified Codes: S70.02XA - Contusion of left hip, initial encounter BARBARA WHELAN DO Jan 31, 2019 20:42
--- NOTE | 2019-01-31 21:54 | RAD ---
INDICATION: Left hip pain with fall COMPARISON: Plain film from January 29, 2019 TECHNIQUE: Axial CT images obtained through the pelvis without contrast. One or more of the following individualized dose reduction techniques were utilized for this examination: 1. Automated exposure control; 2. Adjustment of the mA and/or kV according to patient size; 3. Use of iterative reconstruction technique. FINDINGS: Calcific atherosclerosis. Urinary bladder is partially distended. There is some stranding of the soft tissues including the gluteal region bilaterally as well as upper thighs. Degenerative changes of the lower lumbar spine. No CT evidence of proximal femur fracture. There is a subtle lucency at the anterior aspect of the left acetabulum. IMPRESSION: 1. No evidence of dislocation at the hips. 2. No CT evidence of proximal femur fracture. There is a subtle lucency seen at the anterior aspect of the left acetabulum. Could be a vascular channel within the region however a nondisplaced fracture can have this appearance and if further evaluation is desired MRI could further assess. Electronically signed by: Ethan Everett MD (01/31/2019 9:51 PM) [facility]
[2019-01-31] MEDS ORDERED: ORPH-16 PO (22:06)
[2019-01-31 22:13] VITALS: BP 132/68
== END 2019-01-31 22:20 | disposition home or self-care (01) ==
LOC: ER 19:49
DX: S70.02XA Contusion of left hip, initial encounter (principal); J45.909 Unspecified asthma, uncomplicated; E11.9 Type 2 diabetes mellitus without complications; I10 Essential (primary) hypertension; Z86.73 Personal history of transient ischemic attack (TIA), and cerebral infarction without residual deficits; Z88.0 Allergy status to penicillin; Z88.6 Allergy status to analgesic agent; Z91.040 Latex allergy status; W01.0XXA Fall on same level from slipping, tripping and stumbling without subsequent striking against object, initial encounter; Y93.89 Activity, other specified; Y92.89 Other specified places as the place of occurrence of the external cause; Y99.8 Other external cause status
CPT/HCPCS: 72192; 99284

== ENCOUNTER 2020-08-22 12:47 | Emergency (ER) | payer MEDICARE ==
[~2020-08-22] VITALS: Ht 154.9 cm; Wt 72.6 kg
[~2020-08-22 12:47] MED LIST changes: +ORPH-16 PO
[2020-08-22 14:12] LABS: CALCIUM 9.6 mg/dL (8.5-10.1); GFR 55.3; POTASSIUM 4.5 mmol/L (3.5-5.1)
[2020-08-22 14:16] LABS: BASO % 0 % (0-3); EOS % 1 % (0-3); HEMATOCRIT 41.6 % (36.0-47.0); HEMOGLOBIN 13.6 g/dL (12.0-15.5); LYMPH % 17 % (24-48); MEAN CORPUSCULAR HEMOGLOBIN 30 pg (25-35); MEAN CORPUSCULAR HGB CONC 33 g/dL (31-37); MEAN CORPUSCULAR VOLUME 91 fL (79-100); MONO # 0.6 x10^3/uL (0.0-1.1); MONO % 9 % (0-9); NEUT # 4.6 x10^3uL (1.8-7.7); NEUT % 73 % (31-73); PLATELET COUNT 94 x10^3/uL (140-400); RED BLOOD COUNT 4.58 x10^6/uL (3.50-5.40); RED CELL DISTRIBUTION WIDTH 14.3 % (11.5-14.5); WHITE BLOOD COUNT 6.3 x10^3/uL (4.0-11.0)
[2020-08-22 14:17] LABS: ACETAMIN < 2.0 mcg/mL (10-30); MAGNESIUM 1.8 mg/dL (1.8-2.4); SALIC < 2.8 mg/dL (2.8-20.0)
[2020-08-22 14:32] LABS: AMPHETAMINE/METHAMPHETAMINE NEG (NEG); BARBITURATES NEG (NEG); BENZODIAZEPINES NEG (NEG); CANNABINOIDS NEG (NEG); COCAINE NEG (NEG); METHADONE NEG (NEG); OPIATES NEG (NEG); PHENCYCLIDINE NEG (NEG)
[2020-08-22 14:57] LABS: BILIRUBIN,URINE NEG (NEG); CLARITY,URINE CLEAR; COLOR,URINE YELLOW; GLUCOSE,URINE >=1000 mg/dL (NEG); NITRITE,URINE NEG (NEG); UROBILINOGEN,URINE 0.2 mg/dL (0.2 mg/dL)
[2020-08-22 14:58] LABS: BACTERIA,URINE 0 /HPF (0-FEW); RBC,URINE OCC /HPF (0-2); SQUAMOUS EPITHELIAL CELL,UR MOD /LPF; WBC,URINE OCC /HPF (0-4)
--- NOTE | 2020-08-22 16:33 | PHYS DOC ---
Past History Past Medical History: Asthma, Depression, Diabetes, Hypertension, TIA (MAYELA GENTILE MD) Past Medical History: Anxiety, Diabetes, Hypertension Past Medical History CRPS- Complex Regional Pain Syndrome (YONATHAN BURRELL MD) Past Surgical History: Other (MAYELA GENTILE MD) Alcohol Use: None Drug Use: None (MAYELA GENTILE MD) Adult General Chief Complaint Chief Complaint: SUICIDAL IDEATION [facility] HPI Patient is a 69-year-old female with past medical history which includes depression, hypertension, asthma and reported prior CVA now presenting to emergency department complaining of depression and suicidal ideation. Patient states that over the last several months she has been sick numerous times been hospitalized having continue to feel down and feel like she is having flulike illness. Patient states this is different for depression which she feels like she started being sick and no longer wants to live. Patient states that she has been considering driving her car off a bridge or killing herself with a toxic ingestion. Patient states she does have pills at home. Denies any current ingestion. Denies any nausea, vomiting fever, chills, chest pain or shortness of breath. (MAYELA GENTILE MD) Review of Systems Review of Systems Constitutional: Denies fever or chills [] Eyes: Denies change in visual acuity, redness, or eye pain [] HENT: Denies nasal congestion or sore throat [] Respiratory: Denies cough or shortness of breath [] Cardiovascular: No additional information not addressed in HPI [] GI: Denies abdominal pain, nausea, vomiting, bloody stools or diarrhea [] : Denies dysuria or hematuria [] Musculoskeletal: Denies back pain or joint pain [] Integument: Denies rash or skin lesions [] Neurologic: Denies headache, focal weakness or sensory changes [] Endocrine: Denies polyuria or polydipsia [] All other systems were reviewed and found to be within normal limits, except as documented in this note. (MAYELA GENTILE MD) Allergies Allergies Allergies Coded Allergies Type Severity Reaction Last Updated Verified Penicillins Allergy Intermediate 10/11/17 Yes carbamazepine Allergy Intermediate 10/11/17 Yes epinephrine Allergy Intermediate 10/11/17 Yes ibuprofen Allergy Intermediate 10/11/17 Yes latex Allergy Intermediate 10/11/17 Yes naproxen Allergy Intermediate 10/11/17 Yes tramadol Allergy Intermediate 10/11/17 Yes (MAYELA GENTILE MD) Physical Exam Physical Exam Constitutional: Well developed, well nourished, no acute distress, non-toxic appearance. [] HENT: Normocephalic, atraumatic, bilateral external ears normal, oropharynx moist, no oral exudates, nose normal. [] Eyes: PERRLA, EOMI, conjunctiva normal, no discharge. [] Neck: Normal range of motion, no tenderness, supple, no stridor. [] Cardiovascular:Heart rate regular rhythm, no murmur [] Lungs & Thorax: Bilateral breath sounds clear to auscultation [] Abdomen: Bowel sounds normal, soft, no tenderness, no masses, no pulsatile masses. [] Skin: Warm, dry, no erythema, no rash. [] Back: No tenderness, no CVA tenderness. [] Extremities: No tenderness, no cyanosis, no clubbing, ROM intact, no edema. [] Neurologic: Alert and oriented X 3, normal motor function, normal sensory function, no focal deficits noted. [] Psychologic: Affect normal, judgement normal, mood normal. [] (MAYELA GENTILE MD) Current Patient Data Vital Signs Vital Signs Date Time Temp Pulse Resp B/P (MAP) Pulse Ox O2 Delivery O2 Flow Rate FiO2 08/22/20 12:52 98.2 75 16 139/74 (95) 96 Room Air Lab Results Laboratory Tests Test 08/22/20 13:09 08/22/20 13:47 Urine Collection Type Unknown Urine Color Yellow Urine Clarity Clear Urine pH 6.0 Urine Specific [place] 1.020 Urine Protein Neg (NEG-TRACE) Urine Glucose (UA) >=1000 mg/dL (NEG) Urine Ketones (Stick) Neg mg/dL (NEG) Urine Blood Neg (NEG) Urine Nitrite Neg (NEG) Urine Bilirubin Neg (NEG) Urine Urobilinogen Dipstick 0.2 mg/dL (0.2 mg/dL) Urine Leukocyte Esterase Neg (NEG) Urine RBC Occ /HPF (0-2) Urine WBC Occ /HPF (0-4) Urine Squamous Epithelial Cells Mod /LPF Urine Transitional Epithelial Cells Occ /LPF Urine Bacteria 0 /HPF (0-FEW) Urine Opiates Screen Neg (NEG) Urine Methadone Screen Neg (NEG) Urine Barbiturates Neg (NEG) Urine Phencyclidine Screen Neg (NEG) Urine Amphetamine/Methamphetamine Neg (NEG) Urine Benzodiazepines Screen Neg (NEG) Urine Cocaine Screen Neg (NEG) Urine Cannabinoids Screen Neg (NEG) Urine Ethyl Alcohol Neg (NEG) White Blood Count 6.3 x10^3/uL (4.0-11.0) Red Blood Count 4.58 x10^6/uL (3.50-5.40) Hemoglobin 13.6 g/dL (12.0-15.5) Hematocrit 41.6 % (36.0-47.0) Mean Corpuscular Volume 91 fL (79-100) Mean Corpuscular Hemoglobin 30 pg (25-35) Mean Corpuscular Hemoglobin Concent 33 g/dL (31-37) Red Cell Distribution Width 14.3 % (11.5-14.5) Platelet Count 94 x10^3/uL (140-400) L Neutrophils (%) (Auto) 73 % (31-73) Lymphocytes (%) (Auto) 17 % (24-48) L Monocytes (%) (Auto) 9 % (0-9) Eosinophils (%) (Auto) 1 % (0-3) Basophils (%) (Auto) 0 % (0-3) Neutrophils # (Auto) 4.6 x10^3uL (1.8-7.7) Lymphocytes # (Auto) 1.0 x10^3/uL (1.0-4.8) Monocytes # (Auto) 0.6 x10^3/uL (0.0-1.1) Eosinophils # (Auto) 0.0 x10^3/uL (0.0-0.7) Basophils # (Auto) 0.0 x10^3/uL (0.0-0.2) Prothrombin Time 10.3 SEC (9.4-11.4) Prothrombin Time INR 1.0 (0.9-1.1) Activated Partial Thromboplast Time 23 SEC (23-33) Sodium Level 137 mmol/L (136-145) Potassium Level 4.5 mmol/L (3.5-5.1) Chloride Level 102 mmol/L (98-107) Carbon Dioxide Level 31 mmol/L (21-32) Anion Gap 4 (6-14) L Blood Urea Nitrogen 21 mg/dL (7-20) H Creatinine 1.0 mg/dL (0.6-1.0) Estimated GFR (Cockcroft-Gault) 55.3 Glucose Level 348 mg/dL (70-99) H Calcium Level 9.6 mg/dL (8.5-10.1) Magnesium Level 1.8 mg/dL (1.8-2.4) Ammonia < 10 mcmol/L (11-34) L Creatine Kinase 36 U/L (26-192) Troponin I Quantitative < 0.017 ng/mL (0-0.055) Salicylates Level < 2.8 mg/dL (2.8-20.0) L Salicylate Last Dose Date 08/22/2020 Salicylate Last Dose Time 1400 Acetaminophen Level < 2.0 mcg/mL (10-30) L Acetaminophen Last Dose Date 08/22/2020 Acetaminophen Last Dose Time 1400 (MAYELA GENTILE MD) EKG EKG [] (MAYELA GENTILE MD) Radiology/Procedures Radiology/Procedures [] (MAYELA GENTILE MD) Heart Score Risk Factors: Risk Factors: DM, Current or recent (<one month) smoker, HTN, HLP, family history of CAD, obesity. Risk Scores: Risk Factors: DM, Current or recent (<one month) smoker, HTN, HLP, family history of CAD, obesity. (MAYELA GENTILE MD) C/O Chest Pain: N/A (YONATHAN BURRELL MD) Course & Med Decision Making Course & Med Decision Making Pertinent Labs and Imaging studies reviewed. (See chart for details) 69-year-old female presents emergency department with suicidal ideation and delineation of plan this does raise concern for severe depression. Will obtain medical clearance and anticipate need for inpatient management. 16:32 -medical clearance obtained. Psych evaluation was completed and agree with inpatient placement for the patient. At this time she appears stable and is calm and cooperative. (MAYELA GENTILE MD) Course & Med Decision Making See prior for details- Pt. accepted at [facility] - Impression: 1. Suicidal ideation 2. Depression 3. Anxiety 4. Diabetes 5. Negative Covid test (Hx COVID infection in ) 6. Hx HTN 7. Hx CRPS- Complex Regional Pain Syndrome 8. Fibromyaqlgia 9. On multiple over the counter Supplements= excess of 27 supplements. ( not counting medical meds) (YONATHAN BURRELL MD) Dragon Disclaimer Dragon Disclaimer This electronic medical record was generated, in whole or in part, using a voice recognition dictation system. (MAYELA GENTILE MD) Departure Departure: Referrals: KERLINE HALL MD (PCP) [place] Disclaimer This chart was dictated in whole or in part using Voice Recognition software in a busy, high-work load, and often noisy Emergency Department environment. It may contain unintended and wholly unrecognized errors or omissions. (YONATHAN BURRELL MD) [place] Disclaimer This chart was dictated in whole or in part using Voice Recognition software in a busy, high-work load, and often noisy Emergency Department environment. It may contain unintended and wholly unrecognized errors or omissions. (YONATHAN BURRELL MD) MAYELA GENTILE MD Aug 22, 2020 16:33 YONATHAN BURRELL MD Aug 22, 2020 23:33
[2020-08-22] MEDS: ONDANSETRON ODT 4 MG TAB.RAPDIS PO ONE (19:48)
[2020-08-22] MEDS: diphenhydrAMINE HCL 25 MG CAPSULE PO ONE (19:48)
[2020-08-22] MEDS: LOSARTAN 50 MG TABLET. PO ONE (19:50)
[2020-08-22] MEDS: GABAPENTIN 400 MG CAPSULE. PO ONE (19:51)
[2020-08-22] MEDS: INSULIN REGULAR 100 UNIT/ML 3ML VIAL. SQ ONE (21:22)
[2020-08-22] MEDS: INSULIN REGULAR 100 UNIT/ML 3ML VIAL. IV ONE ×2 (21:34→22:21)
[2020-08-22] MEDS: IV NORMAL SALINE 1,000ML 1,000 ML IV ONE (21:35)
[2020-08-22 23:37] VITALS: BP 144/78
[2020-08-23] MEDS: ACETAMINOPHEN 500 MG TABLET PO ONE
--- NOTE | 2020-08-23 07:59 | EKG ---
[address] [address] Test Date: 2020-08-22 Test Time: 13:41:26 Pat Name: GHISLAINE CALABRESE Department: Room: Gender: F [employer] Architect: : [id number] Requested By: MAYELA GENTILE Order Number: [id number] Reading MD: Measurements Intervals [place] Rate: P: IA: QRS: QRSD: T: QT: QTc: Interpretive Statements
== END 2020-08-23 00:29 | disposition short-term general hospital (02) ==
LOC: ER 12:47
DX: R45.851 Suicidal ideations (principal); F32.9 Major depressive disorder, single episode, unspecified; F41.9 Anxiety disorder, unspecified; E11.9 Type 2 diabetes mellitus without complications; I10 Essential (primary) hypertension; M79.7 Fibromyalgia; J45.909 Unspecified asthma, uncomplicated; Z20.822 Contact with and (suspected) exposure to COVID-19; Z86.73 Personal history of transient ischemic attack (TIA), and cerebral infarction without residual deficits; Z88.0 Allergy status to penicillin; Z88.6 Allergy status to analgesic agent; Z91.040 Latex allergy status; Z88.8 Allergy status to other drugs, medicaments and biological substances
CPT/HCPCS: 36415; 80048; 80307; 80329; 81001; 82140; 82550; 82947; 83735; 84484; 85025; 85610; 85730; 87426; 93005; 96361; 96372; 96374; 96376; 99285; C9803; J1815; J7030; Q0162; Q0163; U0003; 96375; G0480